=== PATIENT | female | born 1970 | race Caucasian/White ===

== ENCOUNTER 2017-02-23 19:42 | Emergency (ER) | payer OTHER ==
[~2017-02-23] VITALS: Ht 157.5 cm; Wt 81.8 kg
[2017-02-23 20:47] VITALS: BP 112/68
== END 2017-02-23 21:05 | disposition home or self-care (01) ==
LOC: EMS 19:44
DX: S60.440A External constriction of right index finger, initial encounter (principal); S60.441A External constriction of left index finger, initial encounter; F17.210 Nicotine dependence, cigarettes, uncomplicated; W49.04XA Ring or other jewelry causing external constriction, initial encounter; Z88.8 Allergy status to other drugs, medicaments and biological substances; Z95.0 Presence of cardiac pacemaker; Z86.73 Personal history of transient ischemic attack (TIA), and cerebral infarction without residual deficits
CPT/HCPCS: 99281

== ENCOUNTER 2017-07-17 13:08 | Inpatient (IN) | payer MEDICAID, OTHER ==
[~2017-07-17] VITALS: Ht 162.6 cm; Wt 74.2 kg
[2017-07-17] MEDS ORDERED: IPRATROPIUM BROMIDE 0.5 MG/2.5 ML NEB SOLUTION NEB ONE (13:45)
[2017-07-17] MEDS ORDERED: ALBUTEROL SULFATE 2.5 MG/0.5 ML NEB SOLUTION NEB ONE (13:45)
[2017-07-17 14:11] LABS: BASOPHILS % (AUTO) 0.4 % (0.0-2.0); EOSINOPHILS % (AUTO) 4.5 % (1.0-6.0); HEMATOCRIT 44.4 % (36-46); HEMOGLOBIN 15.5 g/dL (12.0-16.0); LYMPHOCYTES # (AUTO) 1.7 K/uL (1.0-4.8); LYMPHOCYTES % (AUTO) 29.5 % (22.0-44.0); MEAN CORPUSCULAR HEMOGLOBIN 29.8 pg (26.0-34.0); MEAN CORPUSCULAR HGB CONC 34.8 G/dL (31.0-37.0); MEAN CORPUSCULAR VOLUME 86 fL (80-100); MONOCYTES # (AUTO) 0.5 K/uL (0.1-1.0); MONOCYTES % (AUTO) 8.1 % (2.0-9.0); NEUTROPHILS # (AUTO) 3.4 K/uL (1.8-7.7); NEUTROPHILS % (AUTO) 57.5 % (40.0-70.0); PLATELET COUNT (AUTO) 187 K/uL (150-450); RED BLOOD CELL COUNT(AUTO) 5.19 MIL/uL (4.00-5.20); RED CELL DISTRIBUTION WIDTH 13.5 % (11.5-14.5)
[2017-07-17 14:30] LABS: ANION GAP 9 mmol/L (8-16); CALCIUM, TOTAL 9.1 mg/dL (8.8-10.5); CARBON DIOXIDE 25 mmol/L (22-29); CHLORIDE 106 mmol/L (98-107); CREATININE 0.92 mg/dL (0.60-1.30); GLOMERULAR FILTR. RATE CALC > 60 mL/min (>60); GLUCOSE,RANDOM 110 mg/dL (70-110); POTASSIUM 3.4 mmol/L (3.5-5.1); SODIUM SERUM 140 mmol/L (136-145); UREA NITROGEN, BLOOD 17 mg/dL (7-18)
[2017-07-17 14:42] LABS: ALKALINE PHOSPHATASE 99 U/L (46-116); BILIRUBIN,TOTAL 0.3 mg/dL (0.1-1.0); TOTAL PROTEIN, SERUM 7.5 g/dL (6.4-8.2)
[2017-07-17 14:54] LABS: ALANINE AMINOTRANSFERASE 20 U/L (12-78); ASPARTATE AMINOTRANSFERASE 15 U/L (15-37)
[2017-07-17] MEDS ORDERED: QUEtiapine FUMARATE 100 MG TABLET PO PRN (17:00)
[2017-07-17] MEDS ORDERED: ZOLPIDEM TARTRATE 10 MG TABLET PO PRN (17:00)
[2017-07-17 17:40] LABS: HCG,QUANTITATIVE 1 mIU/mL (0-6)
[2017-07-17 18:08] VITALS: BP 169/73
[2017-07-17 21:15] VITALS: BP 122/74
[2017-07-18 10:53] VITALS: BP 127/66
[2017-07-18] MEDS: LORazepam 2 MG TABLET PO PRN (14:24)
[2017-07-18] MEDS ORDERED: ALBUTEROL SULFATE HFA 90 MCG/PUFF 8 GM INHALER IH PRN ×2 (15:30)
[2017-07-18 19:28] VITALS: BP 123/62
[2017-07-19 08:00] VITALS: BP 118/80
[2017-07-19] MEDS: ASPIRIN 325 MG EC TABLET PO SCH (11:00)
[2017-07-19] MEDS ORDERED: DSSL PO (15:17)
[2017-07-19] MEDS ORDERED: SERT25TA PO (15:17)
[2017-07-19] MEDS ORDERED: OMEP20 PO (15:17)
[2017-07-19] MEDS ORDERED: VITAD1000 PO (15:17)
[2017-07-19 17:27] VITALS: BP 112/68
[2017-07-19] MEDS: LORazepam 2 MG TABLET PO PRN (18:54)
[2017-07-20] MEDS: ASPIRIN 325 MG EC TABLET PO SCH (10:26)
[2017-07-20 17:54] VITALS: BP 138/63
[2017-07-21 08:19] LABS: CHOL/HDL RATIO 6.4 (3.9-5.7); FREE T4 (FREE THYROXINE) 0.82 ng/dL (0.76-1.46)
[2017-07-21 09:13] LABS: FOLATE SERUM 12.4 ng/mL (5.4-)
[2017-07-21] MEDS: ASPIRIN 325 MG EC TABLET PO SCH (11:03)
[2017-07-21] MEDS: SERTRALINE HCL 50 MG TABLET PO SCH (11:03)
[2017-07-21 17:31] VITALS: BP 126/65
[2017-07-21] MEDS: LORazepam 2 MG TABLET PO PRN (20:16)
[2017-07-22 09:51] VITALS: BP 115/66
[2017-07-22] MEDS: SERTRALINE HCL 50 MG TABLET PO SCH (10:51)
[2017-07-22] MEDS: ASPIRIN 325 MG EC TABLET PO SCH (10:53)
[2017-07-22] MEDS ORDERED: SERT100T12 PO (11:05)
[2017-07-22] MEDS ORDERED: ASPI-891 PO (11:07)
== END 2017-07-22 14:30 | disposition home or self-care (01) | DRG 750 ==
LOC: EMS 13:09 → 3EI 16:55 → EMS 17:30
PROVIDERS: ADMIT Psychiatry & Neurology Psychiatry; ATTEND Psychiatry & Neurology Psychiatry
DX: F25.9 Schizoaffective disorder, unspecified (principal); I69.351 Hemiplegia and hemiparesis following cerebral infarction affecting right dominant side; I10 Essential (primary) hypertension; F12.90 Cannabis use, unspecified, uncomplicated; R26.9 Unspecified abnormalities of gait and mobility; J44.9 Chronic obstructive pulmonary disease, unspecified; F17.210 Nicotine dependence, cigarettes, uncomplicated; Z95.0 Presence of cardiac pacemaker; Z88.8 Allergy status to other drugs, medicaments and biological substances; Z98.51 Tubal ligation status; Z80.1 Family history of malignant neoplasm of trachea, bronchus and lung
CPT/HCPCS: 80074; 82306; 82607; 82746; 83036; 83735; 84439; 94640; 97163; 97166; 97535; 99285; G0480; J3535

== ENCOUNTER 2019-05-03 01:23 | Inpatient (IN) | payer MEDICAID, OTHER ==
[~2019-05-03] VITALS: Ht 162.6 cm; Wt 83.7 kg
[~2019-05-03 01:23] MED LIST: ASPI-1149 PO; SERT100T12 PO
[2019-05-03] MEDS ORDERED: ONDANSETRON HCL 4 MG/2 ML VIAL IVP ONE (03:15)
[2019-05-03] MEDS ORDERED: SODIUM CHLORIDE 0.9% 1,000 ML IV ONE (03:15)
[2019-05-03] MEDS ORDERED: KETOROLAC TROMETHAMINE 30 MG/ML VIAL IVP ONE (03:15)
[2019-05-03 03:40] LABS: EOSINOPHILS % (AUTO) 4.9 % (1.0-6.0); HEMATOCRIT 38.5 % (36-46); HEMOGLOBIN 12.7 g/dL (12.0-16.0); LYMPHOCYTES # (AUTO) 1.5 K/uL (1.0-4.8); LYMPHOCYTES % (AUTO) 29.9 % (22.0-44.0); MEAN CORPUSCULAR VOLUME 88 fL (80-100); MONOCYTES # (AUTO) 0.5 K/uL (0.1-1.0); MONOCYTES % (AUTO) 10.6 % (2.0-9.0); NEUTROPHILS # (AUTO) 2.7 K/uL (1.8-7.7); NEUTROPHILS % (AUTO) 53.6 % (40.0-70.0); PLATELET COUNT (AUTO) 152 K/uL (150-450); RED BLOOD CELL COUNT(AUTO) 4.38 MIL/uL (4.00-5.20)
[2019-05-03 03:51] LABS: ANION GAP 8 mmol/L (8-16); CALCIUM, TOTAL 9.1 mg/dL (8.8-10.5); CARBON DIOXIDE 28 mmol/L (22-29); CHLORIDE 107 mmol/L (98-107); GLOMERULAR FILTR. RATE CALC > 60 mL/min (>60); GLUCOSE,RANDOM 100 mg/dL (70-110); POTASSIUM 4.1 mmol/L (3.5-5.1); SODIUM SERUM 143 mmol/L (136-145); UREA NITROGEN, BLOOD 16 mg/dL (7-18)
[2019-05-03 03:57] LABS: ALANINE AMINOTRANSFERASE 13 U/L (12-78); ALBUMIN 3.1 g/dL (3.4-5.0); ALKALINE PHOSPHATASE 64 U/L (46-116); ASPARTATE AMINOTRANSFERASE 8 U/L (15-37); BILIRUBIN,TOTAL 0.2 mg/dL (0.1-1.0); LIPASE 86 U/L (73-393); TOTAL PROTEIN, SERUM 6.7 g/dL (6.4-8.2)
[2019-05-03 04:05] LABS: B-TYPE NATRIURETIC PEPTIDE 22 pg/mL (0-100)
[2019-05-03 04:07] LABS: LACTIC ACID 1.4 mmol/L (0.4-2.0)
[2019-05-03 04:31] LABS: HCG,QUANTITATIVE 1 mIU/mL (0-6)
[2019-05-03] MEDS ORDERED: POTASSIUM CHL 20 MEQ/D5-0.45NS 1,000 ML IV ONE (05:15)
[2019-05-03 05:25] VITALS: BP 116/78
[2019-05-03] MEDS ORDERED: INFLUENZA VIRUS VACCINE QVS 2019-20 (3YR+)/PF 60 MCG/0.5 ML SYRINGE IM ONE (08:00)
[2019-05-03 08:01] VITALS: BP 118/76
[2019-05-03 11:16] VITALS: BP 135/87
[2019-05-03] MEDS ORDERED: MAGNESIUM HYDROXIDE SUSPENSION 30 ML UDCUP PO PRN (12:15)
[2019-05-03] MEDS ORDERED: SODIUM CHLORIDE 0.9% 500 ML IV ONE (12:15)
[2019-05-03] MEDS ORDERED: MORPHINE SULFATE 2 MG/ML SYRINGE IVP PRN (12:15)
[2019-05-03] MEDS ORDERED: ZOLPIDEM TARTRATE 5 MG TABLET PO PRN (12:15)
[2019-05-03] MEDS ORDERED: ACETAMINOPHEN 325 MG TABLET PO PRN (12:15)
[2019-05-03] MEDS ORDERED: ONDANSETRON HCL 4 MG/2 ML VIAL IVP PRN (12:15)
[2019-05-03] MEDS ORDERED: BISACODYL 10 MG RECTAL RECTAL SUPPOSITORY PR PRN (12:15)
[2019-05-03] MEDS: MetroNIDAZOLE 500 MG/NACL 100 ML IV SCH ×2 (13:40→21:35)
[2019-05-03 15:03] VITALS: BP 128/84
[2019-05-03] MEDS: HEPARIN SODIUM,PORCINE 5,000 UNITS/ML VIAL SQ SCH ×2 (15:19→23:36)
[2019-05-03 19:50] VITALS: BP 128/72
[2019-05-03] MEDS: DOCUSATE SODIUM 100 MG CAPSULE PO SCH (21:35)
[2019-05-03 23:40] VITALS: BP 121/59
[2019-05-04 05:07] VITALS: BP 119/60
[2019-05-04] MEDS: MetroNIDAZOLE 500 MG/NACL 100 ML IV SCH ×3 (05:44→20:44)
[2019-05-04 08:19] VITALS: BP 102/66
[2019-05-04] MEDS: SERTRALINE HCL 100 MG TABLET PO SCH (08:23)
[2019-05-04] MEDS: PANTOPRAZOLE SODIUM 40 MG DR TABLET PO SCH (08:23)
[2019-05-04] MEDS: DOCUSATE SODIUM 100 MG CAPSULE PO SCH (08:23)
[2019-05-04] MEDS: HEPARIN SODIUM,PORCINE 5,000 UNITS/ML VIAL SQ SCH ×3 (08:24→23:37)
[2019-05-04 11:13] VITALS: BP 124/62
[2019-05-04 15:32] VITALS: BP 134/83
[2019-05-04] MEDS: HYDROCODONE/ACETAMINOPHEN 5-325 MG TABLET PO PRN (15:35)
[2019-05-04 20:55] VITALS: BP 136/75
[2019-05-04 23:08] VITALS: BP 150/89
[2019-05-05] MEDS: MetroNIDAZOLE 500 MG/NACL 100 ML IV SCH ×3 (04:23→21:01)
[2019-05-05 04:25] VITALS: BP 121/66
[2019-05-05 07:55] VITALS: BP 148/99
[2019-05-05] MEDS: PANTOPRAZOLE SODIUM 40 MG DR TABLET PO SCH (08:56)
[2019-05-05] MEDS: SERTRALINE HCL 100 MG TABLET PO SCH (08:56)
[2019-05-05] MEDS: HEPARIN SODIUM,PORCINE 5,000 UNITS/ML VIAL SQ SCH ×2 (08:56→17:57)
[2019-05-05] MEDS: HYDROCODONE/ACETAMINOPHEN 5-325 MG TABLET PO PRN (09:02)
[2019-05-05] MEDS ORDERED: LOPE2 PO (09:57)
[2019-05-05] MEDS ORDERED: METR500 PO (09:57)
[2019-05-05 12:13] VITALS: BP 129/77
[2019-05-05 15:47] VITALS: BP 137/76
[2019-05-05 19:30] VITALS: BP 157/77
[2019-05-05] MEDS ORDERED: SODIUM CHLORIDE 0.9% 250 ML IV ONE (20:33)
[2019-05-06 00:37] VITALS: BP 142/76
[2019-05-06] MEDS: HEPARIN SODIUM,PORCINE 5,000 UNITS/ML VIAL SQ SCH ×2 (00:55→09:10)
[2019-05-06] MEDS: MetroNIDAZOLE 500 MG/NACL 100 ML IV SCH ×2 (05:03→13:00)
[2019-05-06 05:27] VITALS: BP 147/72
[2019-05-06 08:21] VITALS: BP 130/82
[2019-05-06] MEDS: PANTOPRAZOLE SODIUM 40 MG DR TABLET PO SCH (09:10)
[2019-05-06] MEDS: SERTRALINE HCL 100 MG TABLET PO SCH (09:10)
[2019-05-06 11:54] VITALS: BP 129/76
[2019-05-06 15:37] VITALS: BP 153/75
== END 2019-05-06 19:00 | disposition home or self-care (01) | DRG 249 ==
LOC: EMS 01:24 → 4E 05:00
PROVIDERS: ADMIT Internal Medicine; ATTEND Internal Medicine
DX: K52.9 Noninfective gastroenteritis and colitis, unspecified (principal); F25.9 Schizoaffective disorder, unspecified; I42.9 Cardiomyopathy, unspecified; E86.0 Dehydration; I69.398 Other sequelae of cerebral infarction; F17.200 Nicotine dependence, unspecified, uncomplicated; J44.9 Chronic obstructive pulmonary disease, unspecified; Z95.0 Presence of cardiac pacemaker; K80.20 Calculus of gallbladder without cholecystitis without obstruction
CPT/HCPCS: 74176; 80074; 83605; 87040; 90686; 93005; 97162; 97167; 97535; G0378; J1644; J1885; J2270; J2405; J3480; J3490; J7030; J7040; J7050

== ENCOUNTER 2019-05-10 02:04 | Emergency (ER) | payer OTHER ==
[~2019-05-10] VITALS: Ht 162.6 cm; Wt 75.0 kg
[~2019-05-10 02:04] MED LIST changes: +LOPE2 PO; +METR500 PO
[2019-05-10] MEDS ORDERED: ACETAMINOPHEN 500 MG TABLET PO ONE (02:45)
[2019-05-10 05:40] VITALS: BP 126/98
== END 2019-05-10 05:48 | disposition home or self-care (01) ==
LOC: EMS 02:04
DX: S00.01XA Abrasion of scalp, initial encounter (principal); F32.9 Major depressive disorder, single episode, unspecified; F17.210 Nicotine dependence, cigarettes, uncomplicated; M54.2 Cervicalgia; M54.5 Low back pain; W06.XXXA Fall from bed, initial encounter; Y93.89 Activity, other specified; Y92.128 Other place in nursing home as the place of occurrence of the external cause; Y99.8 Other external cause status
CPT/HCPCS: 70450; 72125; 72131